=== PATIENT | male | born 2000 | race Two or more races ===

== ENCOUNTER 2025-01-18 18:52 | Emergency (ER) | payer MEDICAID, SELFPAY ==
--- NOTE | 2025-01-18 18:57 | EKG_ITS ---
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
[2025-01-18 19:04] VITALS: BP 130/87; PULSE 88; RESP 18; TEMP 36.9; O2SAT 99
--- NOTE | 2025-01-18 20:31 | EDNOTE_ITS ---
ED Chest Pain RME/HPI General Chief Complaint: Chest Pain Stated Complaint: CHEST PAIN RADIATING L) ARM, HEADACHE Time Seen by Provider: 01/18/25 20:23 Arrival date/time: 01/18/25 18:52 24M with no significant PMH presents to ED with L-sided CP and SOB, as well as SARAVIA for 2 days. Patient denies URI symptoms. Limitations: no limitations Related Data Previous Rx's ?Medication ?Instructions ?Recorded hydrocodone 5 mg-acetaminophen 325 1 tab PO BID PRN pa in #10 tabs 08/16/23 mg tablet Allergies Allergy/AdvReac Type Severity Reaction Status Date / Time No Known Allergies Allergy Verified 01/18/25 18:56 Review of Systems Review of Systems Systems Reviewed: All systems reviewed, normal except as documented Constitutional Constitutional: Reports system reviewed and no additional complaints, except as documented, Reports as per HPI, Denies fever(s) and Reports headache(s) ENT Ears, Nose, Mouth, and Throat: Denies disequilibrium and Reports headache(s) Cardiovascular Cardiovascular: Reports system reviewed and no additional complaints, except as documented, Reports as per HPI, Reports chest pain and Reports dyspnea Respiratory Respiratory: Reports system reviewed and no additional complaints, except as documented, Denies cough and Reports dyspnea Gastrointestinal Gastrointestinal: Reports system reviewed and no additional complaints, except as documented, Denies abdominal pain, Denies nausea and Denies vomiting Neurologic Neurologic: Reports system reviewed and no additional complaints, except as documented, Denies confusion, Denies disequilibrium and Reports headache(s) Psychiatric Psychiatric: Denies confusion Past Medical History Social History SMOKING STATUS: Never smoker ED Exam General Limitations: Present no limitations General appearance: Present alert, in no apparent distress and anxious Head Head exam: Present atraumatic Eye Eye exam: Present normal appearance, PERRL and EOMI ENT ENT exam: Present normal exam, normal oropharynx and mucous membranes moist Neck Neck exam: Present normal inspection, full ROM and trachea midline Chest Chest inspection: Present normal inspection and symmetric chest wall rise Respiratory Respiratory exam: Present normal lung sounds bilaterally Cardiovascular Cardiovascular exam: Present regular rate, normal rhythm and normal heart sounds Abdominal Exam Abdominal exam: Present soft and normal bowel sounds Extremities Exam Extremities exam: Present normal inspection and full ROM Back Exam Back exam: Present normal inspection and full ROM Neurological Exam Neurological exam: Present alert, oriented X3 and CN II-XII intact Psychiatric Psychiatric exam: Present normal affect and normal mood Skin Skin exam: Present warm, dry, intact and normal color Course Quality Measures none Orders Category Date Time Status EKG (ED ONLY) *Do not use* NOW Care 01/18/25 18:57 Completed EKG (ED Only) Stat Exams 01/18/25 18:57 Draft XR chest 1V portable Stat Exams 01/18/25 20:24 Ordered CBC Stat Lab 01/18/25 20:24 Ordered Comprehensive Metabolic Panel Stat Lab 01/18/25 20:24 Ordered D-Dimer Stat Lab 01/18/25 20:24 Ordered Troponin I Stat Lab 01/18/25 20:24 Ordered Vital Signs Vital signs: Vital Signs Temperature 98.5 F 01/18/25 19:04 Pulse Rate 88 01/18/25 19:04 Respiratory Rate 18 01/18/25 19:04 Blood Pressure 130/87 H 01/18/25 19:04 Pulse Oximetry (%) 99 01/18/25 19:04 Oxygen Delivery Method Room Air 01/18/25 19:04 O2 at 99% on RA and WNLs Chest Pain MDM Narrative MDM Narrative:: 24M with no significant PMH presents to ED with L-sided CP and SOB, as well as SARAVIA for 2 days. Patient denies URI symptoms. Physical exam reveals normal pupil response and EOM. No sinus tenderness. Normal WOB. Clear lungs. RRR. Patient is afebrile, alert, but anxious. EKG is NSR. Patient eloped. Patient data External records reviewed:: [facility] previous records Clinical information provided by:: patient Social determinants that could affect healthcare access:: none Patient has the following chronic illnesses:: none How is presenting disease/condition affected by chronic disease/condition?: no chronic disease Evaluation data The following diagnostics were reviewed and interpreted by me:: lab results and radiology exam(s) Lab and/or radiology exams considered but not ordered:: ordered Interpretation Summary: above Medications / Prescriptions Medications or Prescriptions considered but not ordered:: not ordered Medication administrations:: n/a Consultations Consultation(s) initiated? (list below): No Diagnosis Chest Pain Differential Diagnosis: fracture of rib, pneumothorax, stable angina, unstable angina pectoris, atypical chest pain, st elevation myocardial infarction, costochondritis, chest pain, biliary colic and other (PE) Most likely diagnosis given after review of the tests above:: atypical chest pain Admission Indicated Admission indicated?: not indicated Admission Request Was there a request for admission?: No Disposition Plan Disposition Plan: other (specify) (eloped) Discharge Plan Plan Patient Disposition: Elopement Prescriptions/Referrals Prescriptions/Med Rec: No Action hydrocodone-acetaminophen 5-325 mg tablet 1 tab PO BID MDD 2 PRN (Reason: pain) Qty: 10 0RF Problem List Clinical Impression: Atypical chest pain Patient/Caregiver Discharge Instructions Print Language: Turkmen QIAN/TOÑA Supervising Physician QIAN/TOÑA Supervising Physician: Dr. Kerr
--- NOTE | 2025-01-18 21:06 | PC.NURSE ---
no answer when called by esa and registration. @ 2044
--- NOTE | 2025-01-18 21:06 | PC.NURSE ---
no answer when called by xray for the second time at 2104
--- NOTE | 2025-01-18 21:15 | PC.NURSE ---
NO ANSWER AT [facility] OR OUTSIDE.
== END 2025-01-18 21:16 | disposition left against medical advice (07) ==
LOC: SERX 21:27
PROVIDERS: Emergency Provider Emergency Medicine
DX: R07.89 Other chest pain (principal); R06.02 Shortness of breath; R51.9 Headache, unspecified; Z53.29 Procedure and treatment not carried out because of patient's decision for other reasons
CPT/HCPCS: 80053; 84484; 85025; 85379; 93005; 99282